=== PATIENT | male | born 1980 | race African-American/Black ===

== ENCOUNTER 2017-02-26 16:22 | Emergency (ER) | payer MEDICAID ==
[~2017-02-26] VITALS: Ht 152.4 cm; Wt 65.0 kg
[~2017-02-26 16:22] MED LIST: RMST15; SEROQUEL; SUMA20SP; TRAMADOL
[2017-02-26] MEDS ORDERED: ACETAMINOPHEN WITH CODEINE 300/30MG TABLET PO ONE (17:30)
[2017-02-26 18:09] VITALS: BP 115/79
== END 2017-02-26 18:17 | disposition home or self-care (01) ==
LOC: ER 16:23
DX: I50.9 Heart failure, unspecified (principal); R00.0 Tachycardia, unspecified
CPT/HCPCS: 93005; 99283